=== PATIENT | male | born 1945 | race Caucasian/White ===

== ENCOUNTER → 2020-10-25 | Day surgery (SDC) | payer OTHER ==
[~2020-10-25] MED LIST: ARTIFICIALS TEA30 ML OP; ASPIR-LOW81 MG PO; EFFEXOR XR75 MG PO; FISH OIL + D31 EACH PO; FISH OIL 1,0001 EAC5 PO; GLUCOPHAGE 500500 MG PO; LIPITOR40 MG PO; LOPRESSOR 25 MG25 MG PO; MICROZIDE12.5 MG PO; MUCOSA400 MG PO; NAPROSYN500 MG PO; NORCO 5-325 TA1 EACH PO; PROTONIX40 MG PO; VIAGRA100 MG PO; VITAMIN B-122500 MCG SL
== END | disposition home or self-care (01) ==
LOC: OR 06:21
DX: C34.11 Malignant neoplasm of upper lobe, right bronchus or lung (principal); R59.0 Localized enlarged lymph nodes; E27.8 Other specified disorders of adrenal gland; I10 Essential (primary) hypertension; K21.9 Gastro-esophageal reflux disease without esophagitis; E11.9 Type 2 diabetes mellitus without complications; I25.10 Atherosclerotic heart disease of native coronary artery without angina pectoris; I25.2 Old myocardial infarction; Z95.5 Presence of coronary angioplasty implant and graft; Z87.891 Personal history of nicotine dependence; Z79.82 Long term (current) use of aspirin; Z79.84 Long term (current) use of oral hypoglycemic drugs; Z79.899 Other long term (current) drug therapy
CPT/HCPCS: 76000; 82962; 88341; 88342; J2704; J7120

== ENCOUNTER → 2021-01-29 | Outpatient (CLI) | payer OTHER ==
[~2021-01-29] MED LIST changes: +ARTIFICIALS TEA30 ML EYEBOTH; -ARTIFICIALS TEA30 ML OP; +BENADRYL25 MG PO; +CYANOCOBAL1000 MCG/1 INJ; +FOLIC ACID 1 MG1 MG PO; -GLUCOPHAGE 500500 MG PO; +HYDROCHLOROTH12.5 MG PO; +METFORMIN HCL1000 MG PO; -MICROZIDE12.5 MG PO; +TYLENOL325 MG PO
== END ==
LOC: CT 09:31
DX: Z01.89 Encounter for other specified special examinations (principal); C34.11 Malignant neoplasm of upper lobe, right bronchus or lung; R30.0 Dysuria
CPT/HCPCS: 71260; Q9965

== ENCOUNTER 2021-03-19 12:26 | Inpatient (IN) | payer OTHER ==
[~2021-03-19] VITALS: Ht 188 cm; Wt 80.3 kg
[~2021-03-19 12:26] MED LIST changes: -ARTIFICIALS TEA30 ML EYEBOTH; -BENADRYL25 MG PO; -CYANOCOBAL1000 MCG/1 INJ; -FISH OIL 1,0001 EAC5 PO; -FOLIC ACID 1 MG1 MG PO; -HYDROCHLOROTH12.5 MG PO; -LIPITOR40 MG PO; -LOPRESSOR 25 MG25 MG PO; -METFORMIN HCL1000 MG PO; -PROTONIX40 MG PO
[2021-03-19 13:26] LABS: HEMOGLOBIN 7.3 gm/dl (14.0-17.5); RED BLOOD COUNT 2.65 M/UL (4.20-5.50); WHITE BLOOD COUNT 1.8 K/UL (4.5-11.0)
[2021-03-19 14:11] LABS: BUN/CREATININE RATIO 13 (0-10)
[2021-03-19] MEDS ORDERED: PROTONIX40 MG PO (16:13)
[2021-03-19] MEDS ORDERED: BENADRYL25 MG PO (23:49)
[2021-03-20 02:08] LABS: HEMOGLOBIN 7.2 gm/dl (14.0-17.5); RED BLOOD COUNT 2.67 M/UL (4.20-5.50); WHITE BLOOD COUNT 1.9 K/UL (4.5-11.0)
[2021-03-20 02:40] LABS: BUN/CREATININE RATIO 14 (0-10)
[2021-03-20] MEDS ORDERED: ARTIFICIALS TEA30 ML EYEBOTH (07:41)
[2021-03-20] MEDS ORDERED: FISH OIL 1,0001 EAC5 PO (07:42)
[2021-03-20] MEDS ORDERED: LIPITOR40 MG PO (16:10)
[2021-03-20] MEDS ORDERED: HYDROCHLOROTH12.5 MG PO (16:11)
[2021-03-20] MEDS ORDERED: LOPRESSOR 25 MG25 MG PO (16:12)
[2021-03-20] MEDS ORDERED: METFORMIN HCL1000 MG PO (16:12)
[2021-03-20] MEDS ORDERED: FOLIC ACID 1 MG1 MG PO (17:48)
[2021-03-20] MEDS ORDERED: CYANOCOBAL1000 MCG/1 INJ (17:49)
[2021-03-21 04:03] LABS: HEMOGLOBIN 7.6 gm/dl (14.0-17.5); RED BLOOD COUNT 2.79 M/UL (4.20-5.50)
[2021-03-21 04:04] LABS: WHITE BLOOD COUNT 2.9 K/UL (4.5-11.0)
[2021-03-21 04:38] LABS: BUN/CREATININE RATIO 12 (0-10)
[2021-03-22 09:57] LABS: HEMOGLOBIN 7.4 gm/dl (14.0-17.5); RED BLOOD COUNT 2.75 M/UL (4.20-5.50); WHITE BLOOD COUNT 3.5 K/UL (4.5-11.0)
[2021-03-22 10:10] LABS: BUN/CREATININE RATIO 11 (0-10)
[2021-03-23 05:17] LABS: HEMOGLOBIN 7.6 gm/dl (14.0-17.5); RED BLOOD COUNT 2.83 M/UL (4.20-5.50); WHITE BLOOD COUNT 3.2 K/UL (4.5-11.0)
[2021-03-23 09:14] LABS: HBSAG SCREEN Negative (Negative); HEP A AB, IGM Negative (Negative); HEP B CORE AB, IGM Negative (Negative); HEP B CORE AB, TOT Negative (Negative); HEP C VIRUS AB <0.1 (0.0-0.9)
[2021-03-23 10:16] LABS: HEMOGLOBIN 8.3 gm/dl (14.0-17.5); RED BLOOD COUNT 3.03 M/UL (4.20-5.50)
[2021-03-23 10:21] LABS: WHITE BLOOD COUNT 4.1 K/UL (4.5-11.0)
[2021-03-23 10:39] LABS: BUN/CREATININE RATIO 10 (0-10)
--- NOTE | 2021-03-23 11:47 | NUR ---
PT O2 SAT DROPPED TO 75% ON HIGH FLOW NASAL CANNULA WITH LITTLE EXERTION DURING BED BATH. O2 TURNED UP TO 10 L AND PT SAT SLOWLY CAME BACK UP TO 90% ON 10 L AND MAINTAINED. PT IS PHYSICALLY UNABLE TO SAFELY TOLERATE ACTIVITY IN ORDER TO OBTAIN O2 SAT FOR HOME O2 APPROVAL. TM.
[2021-03-24 10:33] LABS: RED BLOOD COUNT 2.94 M/UL (4.20-5.50); WHITE BLOOD COUNT 3.7 K/UL (4.5-11.0)
[2021-03-24 10:58] LABS: BUN/CREATININE RATIO 12 (0-10)
[2021-03-25 10:04] LABS: HEMOGLOBIN 7.9 gm/dl (14.0-17.5); RED BLOOD COUNT 2.9 M/UL (4.20-5.50); WHITE BLOOD COUNT 4.2 K/UL (4.5-11.0)
[2021-03-25 10:24] LABS: BUN/CREATININE RATIO 10 (0-10)
[2021-03-26 06:31] LABS: HEMOGLOBIN 7.6 gm/dl (14.0-17.5); RED BLOOD COUNT 2.82 M/UL (4.20-5.50); WHITE BLOOD COUNT 3.9 K/UL (4.5-11.0)
[2021-03-26 06:55] LABS: BUN/CREATININE RATIO 16 (0-10)
[2021-03-27 06:22] LABS: HEMOGLOBIN 7.5 gm/dl (14.0-17.5); RED BLOOD COUNT 2.7 M/UL (4.20-5.50)
[2021-03-27 06:30] LABS: WHITE BLOOD COUNT 7.5 K/UL (4.5-11.0)
[2021-03-27 06:38] LABS: BUN/CREATININE RATIO 16 (0-10)
[2021-03-28 04:34] LABS: HEMOGLOBIN 7.9 gm/dl (14.0-17.5); RED BLOOD COUNT 2.88 M/UL (4.20-5.50); WHITE BLOOD COUNT 8.4 K/UL (4.5-11.0)
[2021-03-28 04:52] LABS: BUN/CREATININE RATIO 19 (0-10)
--- NOTE | 2021-03-28 14:09 | NUR ---
PATIENT O2 SAT ON 3.5L NC 99% O2 SAT ON ROOM AIR 95% O2 SAT ON ROOM AIR WALKING 81% 02 SAT ON 3.5L NC WALKING 85%
[2021-03-29 05:49] LABS: HEMOGLOBIN 7.9 gm/dl (14.0-17.5); RED BLOOD COUNT 2.9 M/UL (4.20-5.50); WHITE BLOOD COUNT 8.5 K/UL (4.5-11.0)
[2021-03-29 06:15] LABS: BUN/CREATININE RATIO 20 (0-10)
[2021-03-30 04:02] LABS: HEMOGLOBIN 8.6 gm/dl (14.0-17.5); RED BLOOD COUNT 3.12 M/UL (4.20-5.50)
[2021-03-30 04:27] LABS: BUN/CREATININE RATIO 21 (0-10)
[2021-03-30] MEDS ORDERED: IPRAT-ALBUT 0.5-3 ML NEB (11:34)
[2021-03-30] MEDS ORDERED: LEVOFLOXACIN500 MG PO (11:34)
== END 2021-03-30 15:53 | disposition home or self-care (01) | DRG 871 ==
LOC: ER1 12:26 → CDU 18:04 → M/S 18:04
PROVIDERS: Internal Medicine; Physician Assistant; Registered Nurse; Student in an Organized Health Care Education/Training Program; ADMIT Internal Medicine
PROC: B24BZZ4 Ultrasonography of Heart with Aorta, Transesophageal (ICD-10-PCS; principal; 2021-03-22)
DX: A41.9 Sepsis, unspecified organism (principal); J96.01 Acute respiratory failure with hypoxia; D61.810 Antineoplastic chemotherapy induced pancytopenia; J15.9 Unspecified bacterial pneumonia; C34.90 Malignant neoplasm of unspecified part of unspecified bronchus or lung; I42.9 Cardiomyopathy, unspecified; E87.1 Hypo-osmolality and hyponatremia; Z20.822 Contact with and (suspected) exposure to COVID-19; J70.4 Drug-induced interstitial lung disorders, unspecified; E11.9 Type 2 diabetes mellitus without complications; G47.33 Obstructive sleep apnea (adult) (pediatric); R65.20 Severe sepsis without septic shock; I10 Essential (primary) hypertension; Z96.698 Presence of other orthopedic joint implants; D64.81 Anemia due to antineoplastic chemotherapy; F32.9 Major depressive disorder, single episode, unspecified; R53.81 Other malaise; E78.5 Hyperlipidemia, unspecified; I35.1 Nonrheumatic aortic (valve) insufficiency; E83.39 Other disorders of phosphorus metabolism; I45.10 Unspecified right bundle-branch block; T45.1X5A Adverse effect of antineoplastic and immunosuppressive drugs, initial encounter; I77.6 Arteritis, unspecified; I25.10 Atherosclerotic heart disease of native coronary artery without angina pectoris; Z95.1 Presence of aortocoronary bypass graft; Z85.828 Personal history of other malignant neoplasm of skin; Z79.01 Long term (current) use of anticoagulants; Z79.82 Long term (current) use of aspirin; Z90.49 Acquired absence of other specified parts of digestive tract; Z83.3 Family history of diabetes mellitus; Z82.49 Family history of ischemic heart disease and other diseases of the circulatory system; Z80.3 Family history of malignant neoplasm of breast; Z79.4 Long term (current) use of insulin
CPT/HCPCS: ECHO; 36415; 36600; 71045; 71275; 76705; 80053; 80074; 80202; 82105; 82550; 82553; 82803; 82962; 83735; 83874; 83880; 84100; 84484; 85025; 85027; 85379; 85652; 86140; 86704; 86706; 86708; 86803; 87040; 87340; 93005; 93306; 94640; 94760; 97110-GP-CQ; 97116-GP-CQ; 97161; 97530; 97530-GP-CQ; 99285; J1644; J2185; J2920; J2930; J3370; J7030; J7050; J7070; Q9967; U0002

== ENCOUNTER → 2021-05-01 | Outpatient (CLI) | payer OTHER ==
[~2021-05-01] MED LIST changes: +ARTIFICIALS TEA30 ML EYEBOTH; +BENADRYL25 MG PO; +CYANOCOBAL1000 MCG/1 INJ; +FISH OIL 1,0001 EAC5 PO; +FOLIC ACID 1 MG1 MG PO; +HYDROCHLOROTH12.5 MG PO; +IPRAT-ALBUT 0.5-3 ML NEB; +LEVOFLOXACIN500 MG PO; +LIPITOR40 MG PO; +LOPRESSOR 25 MG25 MG PO; +METFORMIN HCL1000 MG PO; +PROTONIX40 MG PO
== END ==
LOC: HEART 5 14:41
DX: J18.9 Pneumonia, unspecified organism (principal); R91.8 Other nonspecific abnormal finding of lung field
CPT/HCPCS: 71046; 94060; 94729

== ENCOUNTER → 2021-06-05 | Outpatient (CLI) | payer MEDICARE | LOC: KOH-I 15:48 | DX: J70.4 Drug-induced interstitial lung disorders, unspecified (principal); R91.8 Other nonspecific abnormal finding of lung field | CPT/HCPCS: 71250 ==

== ENCOUNTER 2021-06-19 16:20 | Observation (INO) | payer OTHER ==
[~2021-06-19] VITALS: Ht 188 cm; Wt 84.8 kg
[~2021-06-19 16:20] MED LIST changes: -FISH OIL 1,0001 EAC5 PO
[2021-06-19 17:19] LABS: RED BLOOD COUNT 3.31 M/UL (4.20-5.50); WHITE BLOOD COUNT 11.5 K/UL (4.5-11.0)
[2021-06-20] MEDS ORDERED: FISH OIL 1,2001 EAC1 PO (07:42)
[2021-06-20 12:04] LABS: ACINETOBACTER BAUMANNII Not Detected (Negative); CANDIDA ALBICANS Not Detected (Negative); CANDIDA KRUSEI Not Detected (Negative); CANDIDA TROPICALIS Not Detected (Negative); ENTEROCOCCUS Not Detected (Negative); ESCHERICHIA COLI Not Detected (Negative); HAEMOPHILUS INFLUENZAE Not Detected (Negative); KLEBSIELLA OXYTOCA Not Detected (Negative); KLEBSIELLA PNEUMONIAE Not Detected (Negative); KPC-CARBAPENEM-RESISTANCE GENE Not Detected (Negative); PROTEUS Not Detected (Negative); PSEUDOMONAS AERUGINOSA Not Detected (Negative); SERRATIA MARCESANS Not Detected (Negative); STAPHYLOCOCCUS Not Detected (Negative); STAPHYLOCOCCUS AUREUS Not Detected (Negative); STREP AGALACTIAE (GROUP B) Not Detected (Negative); STREP PYOGENES (GROUP A) Not Detected (Negative); mecA (METHICILLIN RESIST GENE Not Detected (Negative); vanA/B (VANCOMYCIN RESIST GENE Not Detected (Negative)
[2021-06-20 12:29] LABS: HEMOGLOBIN 8.7 gm/dl (14.0-17.5); RED BLOOD COUNT 3.23 M/UL (4.20-5.50)
[2021-06-20 12:40] LABS: WHITE BLOOD COUNT 8.5 K/UL (4.5-11.0)
[2021-06-20] MEDS ORDERED: HYDROCODON-ACE1 EAC2 PO (13:10)
[2021-06-20] MEDS ORDERED: STIOLTO RESPIMAT4 GM INH (13:11)
[2021-06-20] MEDS ORDERED: PEPCID20 MG PO (13:16)
[2021-06-20] MEDS ORDERED: DAILY VITE1 EACH PO (13:19)
[2021-06-20] MEDS ORDERED: VITAMIN B-121000 MC3 PO (13:20)
[2021-06-20 13:31] LABS: STREPTOCOCCUS DETECTED (Negative)
[2021-06-21 08:07] LABS: HEMOGLOBIN 7.9 gm/dl (14.0-17.5); RED BLOOD COUNT 3.03 M/UL (4.20-5.50); WHITE BLOOD COUNT 9.4 K/UL (4.5-11.0)
[2021-06-22] MEDS ORDERED: LEVOFLOXAC250 MG/10 PO (09:28)
--- NOTE | 2021-06-22 12:26 | NUR ---
1225: REPORT CALLED TO [facility] NURSE, DR ORTIZ NUMBER GIVEN FOR NURSE TO CONTACT REGARDING PAIN MEDICATIONS.
== END 2021-06-22 12:15 | disposition hospice, inpatient (51) ==
LOC: ER1 16:20 → MED SURG 4 06-20 07:35 → CDU 06-20 07:35 → MED SURG 4 06-20 15:40
PROVIDERS: Emergency Medicine; Internal Medicine; Physician Assistant; ADMIT Internal Medicine
DX: C34.11 Malignant neoplasm of upper lobe, right bronchus or lung (principal); C79.71 Secondary malignant neoplasm of right adrenal gland; S22.050A Wedge compression fracture of T5-T6 vertebra, initial encounter for closed fracture; J96.21 Acute and chronic respiratory failure with hypoxia; I12.9 Hypertensive chronic kidney disease with stage 1 through stage 4 chronic kidney disease, or unspecified chronic kidney disease; E11.22 Type 2 diabetes mellitus with diabetic chronic kidney disease; N18.30 Chronic kidney disease, stage 3 unspecified; D63.1 Anemia in chronic kidney disease; I25.10 Atherosclerotic heart disease of native coronary artery without angina pectoris; D84.9 Immunodeficiency, unspecified; E87.1 Hypo-osmolality and hyponatremia; E78.5 Hyperlipidemia, unspecified; G47.30 Sleep apnea, unspecified; Z95.0 Presence of cardiac pacemaker; Z87.891 Personal history of nicotine dependence; Z79.899 Other long term (current) drug therapy; X58.XXXA Exposure to other specified factors, initial encounter; Z20.822 Contact with and (suspected) exposure to COVID-19
CPT/HCPCS: 36600; 70450; 71045; 80048; 80053; 82550; 82553; 82803; 82962; 83605; 83874; 84484; 85025; 85027; 87040; 87070; 87077; 87150; 87186; 87205; 94664; 94760; G0378; J0456; J0696; J1650; J2020; J2543; J7030; Q9967; U0002